=== PATIENT | female | born 1995 | race Caucasian/White ===

== ENCOUNTER 2023-11-13 16:37 | Emergency (ER) | payer SELFPAY ==
[~2023-11-13] VITALS: Ht 165.1 cm; Wt 79.5 kg
[2023-11-13] MEDS ORDERED: CYCL-614 PO (18:38)
[2023-11-13] MEDS ORDERED: ACET500T58 PO (18:38)
[2023-11-13] MEDS: ACETAMINOPHEN 325 MG TAB PO ONE (18:39)
[2023-11-13 20:52] VITALS: BP 133/86; PULSE 81; RESP 18; TEMP 98.7; O2SAT 100
== END 2023-11-13 20:54 | disposition home or self-care (01) ==
LOC: EDBD 16:37 → ER 16:45
DX: S16.1XXA Strain of muscle, fascia and tendon at neck level, initial encounter (principal); R10.2 Pelvic and perineal pain; S70.12XA Contusion of left thigh, initial encounter; R51.9 Headache, unspecified; Z98.890 Other specified postprocedural states; Z79.899 Other long term (current) drug therapy; V43.52XA Car driver injured in collision with other type car in traffic accident, initial encounter; Y93.I9 Activity, other involving external motion; Y92.488 Other paved roadways as the place of occurrence of the external cause; Y99.8 Other external cause status
CPT/HCPCS: 36415; 70450; 72125; 84702